=== PATIENT | male | born 1960 | race Caucasian/White ===

== ENCOUNTER 2023-07-16 09:57 | Outpatient (CLI) | payer BC, SELFPAY | END 2023-07-16 09:58 | disposition home or self-care (01) | PROVIDERS: PCP Family Medicine; Visit Provider Family Medicine | DX: I10 Essential (primary) hypertension (principal); E78.00 Pure hypercholesterolemia, unspecified; Z12.5 Encounter for screening for malignant neoplasm of prostate | CPT/HCPCS: 80053; 80061; G0103 ==

== ENCOUNTER 2024-12-22 08:24 | Outpatient (CLI) | payer BC, SELFPAY | END 2024-12-22 08:25 | disposition home or self-care (01) | LOC: NFLDREF 12-23 08:26 | PROVIDERS: PCP Family Medicine; Referring Provider Family Medicine; Visit Provider Family Medicine | DX: Z00.00 Encounter for general adult medical examination without abnormal findings (principal); I10 Essential (primary) hypertension | CPT/HCPCS: 80053; 80061; G0103 ==